=== PATIENT | female | born 1985 | race Caucasian/White ===

== ENCOUNTER 2018-09-28 07:45 | Emergency (ER) | payer OTHER ==
[~2018-09-28] VITALS: Ht 157.5 cm; Wt 61.4 kg
[2018-09-28] MEDS ORDERED: diazePAM 5 MG TABLET PO ONE (08:30)
[2018-09-28] MEDS ORDERED: MORPHINE SULFATE 4 MG/ML VIAL. IV ONE ×2 (08:30→12:30)
--- NOTE | 2018-09-28 08:30 | PHYS DOC ---
Past Medical History Past Medical History: No Pertinent History Past Surgical History: Other Additional Past Surgical Histo: septal repair Alcohol Use: Occasionally Drug Use: None Adult General Chief Complaint Chief Complaint: Neck Pain HPI HPI Patient is a 33 year old female with no significant medical history who presents to the ED today complaining of a sharp constant 10 out of 10 left later al neck pain radiating to the head that began yesterday when she stretched. She states she heard a bunch of popping sounds from her neck when she stretched. She states the pain is worse when she rotates her neck to the left side. Denies any numbness or tingling to bilateral upper extremities. She states she has a sensation of needles poking her neck and shooting pain to her head since yesterday. Denies any nausea, vomiting, denies any fever. She states she has previous history of neck pain with stiffness. Patient denies anything alleviating her pain. She states she has tried taking [id number] NSAIDs with no relief. Denies any numbness or tingling to bilateral upper extremities or lower extremities. Review of Systems Review of Systems Constitutional: Denies fever or chills [] Eyes: Denies change in visual acuity, redness, or eye pain [] HENT: Denies nasal congestion or sore throat [] Respiratory: Denies cough or shortness of breath [] Cardiovascular: No additional information not addressed in HPI [] GI: Denies abdominal pain, nausea, vomiting, bloody stools or diarrhea [] : Denies dysuria or hematuria [] Musculoskeletal: Reports neck pain Integument: Denies rash or skin lesions [] Neurologic: Denies headache, focal weakness or sensory changes [] All other systems were reviewed and found to be within normal limits, except as documented in this note. Current Medications Current Medications Current Medications Medications (Trade) Dose Ordered Sig/Stefania Start Time Stop Time Status Last Admin Dose Admin Diazepam (Valium) 5 mg 1X ONCE 09/28/18 08:30 09/28/18 08:31 DC 09/28/18 09:28 5 MG Info (CONTRAST GIVEN -- Rx MONITORING) 1 each PRN DAILY PRN 09/28/18 10:15 09/30/18 10:14 Iohexol (Omnipaque 350 Mg/ml) 100 ml STK-MED ONCE 09/28/18 09:59 09/28/18 10:00 DC Morphine Sulfate (Morphine Sulfate) 4 mg 1X ONCE 09/28/18 12:30 09/28/18 12:31 UNV Allergies Allergies Allergies Coded Allergies Type Severity Reaction Last Updated Verified No Known Drug Allergies 09/28/18 No Physical Exam Physical Exam Constitutional: Well developed, well nourished, no acute distress, non-toxic appearance. [] HENT: Normocephalic, atraumatic, bilateral external ears normal, oropharynx moist, no oral exudates, nose normal. [] Eyes: PERRLA, EOMI, conjunctiva normal, no discharge. [] Neck: Patient is guarding the left side of her neck, no tenderness on physical exam to the cervical spine, limited range of motion to the left side of the neck with pain elicited during range of motion. Negative meningeal signs. Supple, no stridor. +2 left carotid pulse. Cardiovascular:Heart rate regular rhythm, no murmur [] Lungs & Thorax: Bilateral breath sounds clear to auscultation [] Abdomen: Bowel sounds normal, soft, no tenderness, no masses, no pulsatile masses. [] Skin: Warm, dry, no erythema, no rash. [] Back: No tenderness, no CVA tenderness. [] Extremities: No tenderness, no cyanosis, no clubbing, ROM intact, no edema. [] Neurologic: Alert and oriented X 3, normal motor function, normal sensory function, no focal deficits noted. Cranial nerves II through XII intact Psychologic: Affect normal, judgement normal, mood normal. [] Current Patient Data Vital Signs Vital Signs Date Time Temp Pulse Resp B/P (MAP) Pulse Ox O2 Delivery O2 Flow Rate FiO2 09/28/18 10:52 69 16 104/58 (73) 99 Room Air 09/28/18 07:53 98.5 98.5 Lab Values Laboratory Tests Test 09/28/18 08:55 09/28/18 09:01 09/28/18 09:23 White Blood Count 6.3 x10^3/uL (4.0-11.0) Red Blood Count 3.96 x10^6/uL (3.50-5.40) Hemoglobin 12.7 g/dL (12.0-15.5) Hematocrit 36.5 % (36.0-47.0) Mean Corpuscular Volume 92 fL (79-100) Mean Corpuscular Hemoglobin 32 pg (25-35) Mean Corpuscular Hemoglobin Concent 35 g/dL (31-37) Red Cell Distribution Width 12.5 % (11.5-14.5) Platelet Count 266 x10^3/uL (140-400) Neutrophils (%) (Auto) 68 % (31-73) Lymphocytes (%) (Auto) 20 % (24-48) L Monocytes (%) (Auto) 8 % (0-9) Eosinophils (%) (Auto) 4 % (0-3) H Basophils (%) (Auto) 1 % (0-3) Neutrophils # (Auto) 4.2 x10^3uL (1.8-7.7) Lymphocytes # (Auto) 1.2 x10^3/uL (1.0-4.8) Monocytes # (Auto) 0.5 x10^3/uL (0.0-1.1) Eosinophils # (Auto) 0.3 x10^3/uL (0.0-0.7) Basophils # (Auto) 0.0 x10^3/uL (0.0-0.2) Sodium Level 139 mmol/L (136-145) Potassium Level 3.9 mmol/L (3.5-5.1) Chloride Level 103 mmol/L (98-107) Carbon Dioxide Level 27 mmol/L (21-32) Anion Gap 9 (6-14) 15 mmol/L (6-14) H Blood Urea Nitrogen 12 mg/dL (7-20) Creatinine 0.8 mg/dL (0.6-1.0) Estimated GFR (Cockcroft-Gault) 82.6 Glucose Level 87 mg/dL (70-99) 82 mg/dL (70-99) Calcium Level 9.1 mg/dL (8.5-10.1) POC Hemoglobin 12.2 g/dL (12-15) POC Hematocrit 36 % (36-40) POC Sodium 139 mmol/L (135-145) POC Potassium 3.9 mmol/L (3.5-5.0) POC Chloride 104 mmol/L (98-110) POC Total CO2 26 mmol/L (23-32) POC Blood Urea Nitrogen 11 mg/dL (8-26) POC Creatinine 0.7 mg/dL (0.5-1.4) POC Ionized Calcium (Daniela) 1.14 mmol/L (1.13-1.32) POC Urine HCG, Qualitative Hcg negative (Negative) Laboratory Tests 09/28/18 08:55 Laboratory Tests 09/28/18 08:55 09/28/18 09:01 EKG EKG [] Radiology/Procedures Radiology/Procedures []PROCEDURE: CT HEAD WO CONTRAST EXAM: CT Head without IV contrast CLINICAL HISTORY: Pain and paresthesias from head and neck COMPARISON: None. TECHNIQUE: Routine CT of the head without contrast. Soft tissues and bone windows were reviewed. PQRS compliance statement - One or more of the following individualized dose reduction techniques were utilized for this study: 1. Automated exposure control 2. Adjustment of the mA and/or kV according to patient size 3. Use of iterative reconstruction technique FINDINGS: There is no evidence of hemorrhage, mass or extra-axial fluid collection. [place]-white differentiation is maintained with no evidence of edema. There is no mass effect or shift of the intracranial structures. The ventricles, basilar cisterns and cortical sulci are normal in size and configuration for the patients stated age. The cerebellum and brainstem are unremarkable. The calvarium demonstrates no evidence of fracture or focal lesion. There is normal aeration of the visualized paranasal sinuses and mastoid air cells. The visualized portions of the orbits are normal. IMPRESSION: No evidence for acute intracranial process. Electronically signed by: Kenny Kwong MD (09/28/2018 10:54 AM) [id number] DICTATED and SIGNED BY: KENNY KWONG MD DATE: 09/28/18 1054 PROCEDURE: CT ANGIOGRAPHY NECK CTA of the neck with contrast, 09/28/2018: HISTORY: Head and neck pain Multidetector CT imaging was performed following an IV bolus injection of iodinated contrast material. Multiplanar reconstructions were produced including 3-D volume rendered reconstructions of the major arteries. The origins of the cervicocephalic arteries from the aortic arch are widely patent. The common carotid arteries are unremarkable. No significant abnormality is identified at either carotid bifurcation. The internal carotid arteries are widely patent up to the level of the [place]. There is no evidence of dissection. Both vertebral arteries are widely patent. The left vertebral artery is slightly dominant. The basilar artery shows no abnormality. Incidental CT findings include the presence of several small cervical lymph nodes bilaterally without pathologic enlargement. There are minimal scattered degenerative changes in the cervical spine. IMPRESSION: No significant abnormality is detected. PQRS Compliance Statement: One or more of the following individualized dose reduction techniques were utilized for this examination: 1. Automated exposure control 2. Adjustment of the mA and/or kV according to patient size 3. Use of iterative reconstruction technique Electronically signed by: Chip Pradhan MD (09/28/2018 12:03 PM) [facility] DICTATED and SIGNED BY: CHIP PRADHAN MD DATE: 09/28/18 1201 Course & Med Decision Making Course & Med Decision Making Pertinent Labs and Imaging studies reviewed. (See chart for details) This is a 33-year-old female patient presenting to the ED today with neck pain that began yesterday after she stretched. She states she now has sensation of needles poking her neck with pain radiating to her head. CT of the head is negative for any acute findings, CT Angio neck-was negative for any acute findings, noted for arthritis. Discharge with Medrol Dosepak, cyclobenzaprine, diclofenac. Follow-up with PCP, pain clinic, neurosurgery in the next 1-2 weeks. Ice elevation encouraged. Provided return precautions. Dragon Disclaimer Dragon Disclaimer This electronic medical record was generated, in whole or in part, using a voice recognition dictation system. Departure Departure Impression: Primary Impression: Neck pain, acute Additional Impression: DJD (degenerative joint disease) of cervical spine Disposition: 01 HOME, SELF-CARE Condition: STABLE Referrals: MESSI COLE DO (PCP) Follow-up in 1-2 weeks TIA SALINAS MD Follow-up in 1-2 weeks ROB CM MD Follow-up in 1-2 weeks Patient Instructions: Arthritis, Degenerative-Brief, Musculoskeletal Pain Additional Instructions: You have elevated in the medicine for neck pain, your CT of the head, cervical spine were negative for any acute findings. Please ice elevate the affected area. Take the prescribed medications as ordered. Follow-up with your own doctor the provided specialist in the next 1-2 weeks. Scripts Cyclobenzaprine Hcl (CYCLOBENZAPRINE HCL) 10 Mg Tablet 1 TAB PO TID, #30 TAB Prov: ARMANDO GORDON [employer] 09/28/18 Methylprednisolone (MEDROL) 4 Mg Tab.ds.pk 1 PKG PO UD, #1 PKG Prov: ZOEYUNGAARMANDO [employer] 09/28/18 Diclofenac Sodium (DICLOFENAC SODIUM) 50 Mg Tablet.dr 1 TAB PO BID, #20 TAB 0 Refills Prov: ARMANDO GORDON APRN 09/28/18 Problem Qualifiers Additional Impression: DJD (degenerative joint disease) of cervical spine Spinal osteoarthritis complication: unspecified spinal osteoarthritis Qualified Codes: M47.812 - Spondylosis without myelopathy or radiculopathy, cervical region ARMANDO GORDON APRN Sep 28, 2018 08:30
[2018-09-28 09:08] LABS: BASO % 1 % (0-3); EOS # 0.3 x10^3/uL (0.0-0.7); EOS % 4 % (0-3); HEMATOCRIT 36.5 % (36.0-47.0); HEMOGLOBIN 12.7 g/dL (12.0-15.5); LYMPH # 1.2 x10^3/uL (1.0-4.8); LYMPH % 20 % (24-48); MEAN CORPUSCULAR HEMOGLOBIN 32 pg (25-35); MEAN CORPUSCULAR HGB CONC 35 g/dL (31-37); MEAN CORPUSCULAR VOLUME 92 fL (79-100); MONO # 0.5 x10^3/uL (0.0-1.1); MONO % 8 % (0-9); NEUT # 4.2 x10^3uL (1.8-7.7); NEUT % 68 % (31-73); PLATELET COUNT 266 x10^3/uL (140-400); RED BLOOD COUNT 3.96 x10^6/uL (3.50-5.40); RED CELL DISTRIBUTION WIDTH 12.5 % (11.5-14.5); WHITE BLOOD COUNT 6.3 x10^3/uL (4.0-11.0)
[2018-09-28 09:20] LABS: CALCIUM 9.1 mg/dL (8.5-10.1); CREATININE 0.8 mg/dL (0.6-1.0); GFR 82.6; POTASSIUM 3.9 mmol/L (3.5-5.1)
[2018-09-28 09:23] LABS: CREATININE ISTAT 0.7 mg/dL (0.5-1.4); HEMOGLOBIN ISTAT 12.2 g/dL (12-15); ION CA ISTAT 1.14 mmol/L (1.13-1.32); POTASSIUM ISTAT 3.9 mmol/L (3.5-5.0)
[2018-09-28] MEDS ORDERED: IOHEXOL 350 MG/ML 100 ML VIAL. ONE (09:59)
[2018-09-28] MEDS ORDERED: IOHEXOL 350 MG/ML 100 ML VIAL. IV ONE (10:00)
[2018-09-28] MEDS ORDERED: CONTRAST GIVEN. MC PRN (10:15)
--- NOTE | 2018-09-28 10:57 | RAD ---
EXAM: CT Head without IV contrast CLINICAL HISTORY: Pain and paresthesias from head and neck COMPARISON: None. TECHNIQUE: Routine CT of the head without contrast. Soft tissues and bone windows were reviewed. PQRS compliance statement - One or more of the following individualized dose reduction techniques were utilized for this study: 1. Automated exposure control 2. Adjustment of the mA and/or kV according to patient size 3. Use of iterative reconstruction technique FINDINGS: There is no evidence of hemorrhage, mass or extra-axial fluid collection. [place]-white differentiation is maintained with no evidence of edema. There is no mass effect or shift of the intracranial structures. The ventricles, basilar cisterns and cortical sulci are normal in size and configuration for the patients stated age. The cerebellum and brainstem are unremarkable. The calvarium demonstrates no evidence of fracture or focal lesion. There is normal aeration of the visualized paranasal sinuses and mastoid air cells. The visualized portions of the orbits are normal. IMPRESSION: No evidence for acute intracranial process. Electronically signed by: Kenny Nielsen MD (09/28/2018 10:54 AM) [id number]
--- NOTE | 2018-09-28 12:06 | RAD ---
CTA of the neck with contrast, 09/28/2018: HISTORY: Head and neck pain Multidetector CT imaging was performed following an IV bolus injection of iodinated contrast material. Multiplanar reconstructions were produced including 3-D volume rendered reconstructions of the major arteries. The origins of the cervicocephalic arteries from the aortic arch are widely patent. The common carotid arteries are unremarkable. No significant abnormality is identified at either carotid bifurcation. The internal carotid arteries are widely patent up to the level of the [place]. There is no evidence of dissection. Both vertebral arteries are widely patent. The left vertebral artery is slightly dominant. The basilar artery shows no abnormality. Incidental CT findings include the presence of several small cervical lymph nodes bilaterally without pathologic enlargement. There are minimal scattered degenerative changes in the cervical spine. IMPRESSION: No significant abnormality is detected. PQRS Compliance Statement: One or more of the following individualized dose reduction techniques were utilized for this examination: 1. Automated exposure control 2. Adjustment of the mA and/or kV according to patient size 3. Use of iterative reconstruction technique Electronically signed by: Chip Pradhan MD (09/28/2018 12:03 PM) [facility]
[2018-09-28 12:30] VITALS: BP 102/64
[2018-09-28] MEDS ORDERED: CYCL10TA2 PO (12:33)
[2018-09-28] MEDS ORDERED: METH4TAB2 PO (12:33)
[2018-09-28] MEDS ORDERED: DICL50TA4 PO (12:33)
== END 2018-09-28 12:58 | disposition home or self-care (01) ==
LOC: ER 07:45
DX: M47.812 Spondylosis without myelopathy or radiculopathy, cervical region (principal)
CPT/HCPCS: 36415; 70450; 70498; 80047; 80048; 81025; 85025; 96374; 96376; 99285; J2270; Q9967